=== PATIENT | female | born 1960 | race Caucasian/White ===

== ENCOUNTER 2022-11-13 10:46 | Emergency (ER) | payer MEDICARE, OTHER ==
[2022-11-13 11:32] VITALS: RESP 18; TEMP 98
--- NOTE | 2022-11-13 14:01 | ED ---
General Adult HPI - General Chief complaint: Nausea/Vomiting/Diarrhea Stated complaint: diverticulitis, knee pain Time Seen by Provider: 11/13/22 12:52 Source: patient, RN notes reviewed Mode of arrival: ambulatory Limitations: no limitations - History of Present Illness Initial comments: 62-year-old female with past medical history significant for COPD and Diverticulosis presents the emergency department complaing of Nausea and non- bloody diarrhea x 2 days. She reports that she has seen fatty deposits in her stool. She notes she has been nauseas but denies any episodes of vomiting. She denies abdominal pain, melena, hematochezia, hematemesis. She does report having C. Diff in the past. Denies recent travel or recent ABX use. She tried taking half of a norco with mild relief. She also reports R calf pain for which she was told she had a bakers cyst. She reports the pain is worse and radiates from the back of her right knee into her calf. She reports unilateral leg swelling. - Related Data Home Medications Medication Instructions Recorded Confirmed Albuterol Inhaler [Ventolin Hfa 2 puff INHALATION RT-QID PRN 11/13/22 11/13/22 Inhaler] DULoxetine HCL [Cymbalta] 60 mg PO DAILY 11/13/22 11/13/22 Famotidine 40 mg PO DAILY 11/13/22 11/13/22 LORazepam [Ativan] 1 mg PO DAILY PRN 11/13/22 11/13/22 Leflunomide [Arava] 20 mg PO DAILY 11/13/22 11/13/22 Levothyroxine Sodium [Synthroid] 100 mcg PO AC-[id number] 11/13/22 11/13/22 Metoprolol Tartrate [Lopressor] 50 mg PO DAILY 11/13/22 11/13/22 Pantoprazole [Protonix] 40 mg PO DAILY 11/13/22 11/13/22 Simvastatin [Zocor] 5 mg PO DAILY 11/13/22 11/13/22 busPIRone HCL [Buspar] 7.5 mg PO DAILY 11/13/22 11/13/22 Allergies Allergy/AdvReac Type Severity Reaction Status Date / Time Penicillins Allergy Anaphylaxis Verified 11/13/22 14:35 Sulfa (Sulfonamide Allergy Anaphylaxis Verified 11/13/22 14:35 Antibiotics) Review of Systems ROS Statement: Those systems with pertinent positive or pertinent negative responses have been documented in the HPI. ROS Other: All systems not noted in ROS Statement are negative. Past Medical History Past Medical History: COPD, Hypertension, Myocardial Infarction ([place]), Rheumatoid Arthritis (RA), Thyroid Disorder Additional Past Medical History / Comment(s): diverticulitis History of Any Multi-Drug Resistant Organisms: None Reported Past Surgical History: Cholecystectomy, Hernia Repair, Hysterectomy Additional Past Surgical History / Comment(s): heart cath Past Psychological History: No Psychological Hx Reported Smoking Status: Former smoker Past Alcohol Use History: Occasional Past Drug Use History: Marijuana General Exam Limitations: no limitations General appearance: alert, in no apparent distress Head exam: Present: atraumatic, normocephalic, normal inspection Eye exam: Present: normal appearance, PERRL, EOMI. Absent: scleral icterus, conjunctival injection, periorbital swelling ENT exam: Present: normal exam, mucous membranes moist Neck exam: Present: normal inspection. Absent: tenderness, meningismus, lymphadenopathy Respiratory exam: Present: normal lung sounds bilaterally. Absent: respiratory distress, wheezes, rales, rhonchi, stridor Cardiovascular Exam: Present: regular rate, normal rhythm, normal heart sounds. Absent: systolic murmur, diastolic murmur, rubs, gallop, clicks GI/Abdominal exam: Present: soft, normal bowel sounds. Absent: distended, tenderness, guarding, rebound, rigid Extremities exam: Present: normal inspection, full ROM, normal capillary refill, calf tenderness (R calf, + singh's. Without marked erythema. 1+ edema. ). A bsent: tenderness, pedal edema, joint swelling Back exam: Present: normal inspection Neurological exam: Present: alert, oriented X3, CN II-XII intact Psychiatric exam: Present: normal affect, normal mood Skin exam: Present: warm, dry, intact, normal color. Absent: rash Course Vital Signs 11/13/22 11/13/22 11:25 15:32 Temperature 98.0 F Pulse Rate 52 L 61 Respiratory 18 18 Rate Blood Pressure 145/88 120/61 O2 Sat by Pulse 92 L 84 L Oximetry Medical Decision Making - Medical Decision Making This is 62 year old female presenting to the emergency department for nausea, diarrhea, and right leg pain. Patient was seen and evaluated physical exam essentially unremarkable. Lab Work and imaging ordered and performed during the course in the ED. I interpreted the following: labwork essentially unremarkable, US doppler of R leg negative for DVT however, shows a dimas's cyst. Chest XR negative for evidence of pleural effusion. I discussed the results in detail with the patient and return precautions were discussed. Patient verbalized understanding and is agreeable with plan for discharge with follow up with primary care physician in 1-2 days. I discussed the case with DEANDRE Bianchi who agrees with plan for discharge. - Lab Data Result diagrams: 11/13/22 13:50 11/13/22 13:50 Lab Results 11/13/22 11/13/22 11/13/22 Range/Units 13:50 13:50 13:50 WBC 6.4 (3.8-10.6) k/uL RBC 5.12 (3.80-5.40) m/uL Hgb 15.0 (11.4-16.0) gm/dL Hct 46.0 (34.0-46.0) % MCV 89.9 (80.0-100.0) fL MCH 29.3 (25.0-35.0) pg MCHC 32.5 (31.0-37.0) g/dL RDW 13.3 (11.5-15.5) % Plt Count 216 (150-450) k/uL MPV 8.7 Neutrophils % 51 % Lymphocytes % 27 % Monocytes % 7 % Eosinophils % 12 % Basophils % 2 % Neutrophils # 3.2 (1.3-7.7) k/uL Lymphocytes # 1.7 (1.0-4.8) k/uL Monocytes # 0.4 (0-1.0) k/uL Eosinophils # 0.8 H (0-0.7) k/uL Basophils # 0.2 (0-0.2) k/uL Sodium 143 (137-145) mmol/L Potassium 4.4 (3.5-5.1) mmol/L Chloride 112 H (98-107) mmol/L Carbon Dioxide 26 (22-30) mmol/L Anion Gap 5 mmol/L BUN 15 (7-17) mg/dL Creatinine 0.76 (0.52-1.04) mg/dL Est GFR (CKD-EPI)AfAm >90 (>60 ml/min/1.73 sqM) Est GFR (CKD-EPI)NonAf 85 (>60 ml/min/1.73 sqM) Glucose 107 H (74-99) mg/dL Calcium 9.0 (8.4-10.2) mg/dL Total Bilirubin 0.5 (0.2-1.3) mg/dL AST 23 (14-36) U/L ALT 18 (4-34) U/L Alkaline Phosphatase 74 (38-126) U/L Troponin I <0.012 (0.000-0.034) ng/mL Total Protein 6.8 (6.3-8.2) g/dL Albumin 4.0 (3.5-5.0) g/dL Lipase 41 (23-300) U/L Influenza Type A (PCR) (Not Detectd) Influenza Type B (PCR) (Not Detectd) RSV (PCR) (Not Detectd) SARS-CoV-2 (PCR) (Not Detectd) 11/13/22 Range/Units 13:50 WBC (3.8-10.6) k/uL RBC (3.80-5.40) m/uL Hgb (11.4-16.0) gm/dL Hct (34.0-46.0) % MCV (80.0-100.0) fL MCH (25.0-35.0) pg MCHC (31.0-37.0) g/dL RDW (11.5-15.5) % Plt Count (150-450) k/uL MPV Neutrophils % % Lymphocytes % % Monocytes % % Eosinophils % % Basophils % % Neutrophils # (1.3-7.7) k/uL Lymphocytes # (1.0-4.8) k/uL Monocytes # (0-1.0) k/uL Eosinophils # (0-0.7) k/uL Basophils # (0-0.2) k/uL Sodium (137-145) mmol/L Potassium (3.5-5.1) mmol/L Chloride (98-107) mmol/L Carbon Dioxide (22-30) mmol/L Anion Gap mmol/L BUN (7-17) mg/dL Creatinine (0.52-1.04) mg/dL Est GFR (CKD-EPI)AfAm (>60 ml/min/1.73 sqM) Est GFR (CKD-EPI)NonAf (>60 ml/min/1.73 sqM) Glucose (74-99) mg/dL Calcium (8.4-10.2) mg/dL Total Bilirubin (0.2-1.3) mg/dL AST (14-36) U/L ALT (4-34) U/L Alkaline Phosphatase (38-126) U/L Troponin I (0.000-0.034) ng/mL Total Protein (6.3-8.2) g/dL Albumin (3.5-5.0) g/dL Lipase (23-300) U/L Influenza Type A (PCR) Not Detected (Not Detectd) Influenza Type B (PCR) Not Detected (Not Detectd) RSV (PCR) Not Detected (Not Detectd) SARS-CoV-2 (PCR) Not Detected (Not Detectd) Disposition Clinical Impression: Dimas's cyst of knee, Nausea Disposition: HOME SELF-CARE Condition: Stable Instructions (If sedation given, give patient instructions): Acute Nausea and Vomiting (ED) Additional Instructions: Please return to the nearest emergency department if worsening symptoms of fever, shortness of breath, diarrhea. Is patient prescribed a controlled substance at d/c from ED?: No Referrals: Rebel Castro MD [Primary Care Provider] - 1-2 days Time of Disposition: 16:08
[2022-11-13 14:10] LABS: Basophils # (A) 0.2 k/uL (0-0.2); Basophils % (A) 2 %; Eosinophils # (A) 0.8 k/uL (0-0.7); Eosinophils % (A) 12 %; Lymphocytes # (A) 1.7 k/uL (1.0-4.8); Lymphocytes % (A) 27 %; MCH 29.3 pg (25.0-35.0); MCHC 32.5 g/dL (31.0-37.0); MCV 89.9 fL (80.0-100.0); Mean Platelet Volume 8.7; Monocytes # (A) 0.4 k/uL (0-1.0); Monocytes % (A) 7 %; Neutrophils # (A) 3.2 k/uL (1.3-7.7); Neutrophils % (A) 51 %; Platelet Count 216 k/uL (150-450); RBC 5.12 m/uL (3.80-5.40); RDW 13.3 % (11.5-15.5); WBC 6.4 k/uL (3.8-10.6)
[2022-11-13 14:22] LABS: ALT 18 U/L (4-34); AST 23 U/L (14-36); African American GFR (CKD) >90 (>60 ml/min/1.73 sqM); Alkaline Phosphatase 74 U/L (38-126); Anion Gap 5 mmol/L; Blood Urea Nitrogen 15 mg/dL (7-17); Carbon Dioxide 26 mmol/L (22-30); Chloride 112 mmol/L (98-107); Glucose 107 mg/dL (74-99); Lipase 41 U/L (23-300); Non-African American GFR(CKD) 85 (>60 ml/min/1.73 sqM); Potassium 4.4 mmol/L (3.5-5.1); Sodium 143 mmol/L (137-145); Total Bilirubin 0.5 mg/dL (0.2-1.3); Total Protein 6.8 g/dL (6.3-8.2)
--- NOTE | 2022-11-13 14:27 | CT ---
EXAMINATION TYPE: CT abdomen pelvis wo con DATE OF EXAM: 11/13/2022 COMPARISON: None HISTORY: 62-year-old female with diverticulitis, abdominal pain CT DLP: 1093.4 mGycm. Automated exposure control for dose reduction was used. TECHNIQUE: Contiguous axial scanning of the abdomen and pelvis without IV contrast. Coronal and sagit piter reconstructions performed. FINDINGS: Heart normal size without pericardial effusion. Lung bases through without pleural effusion. Noncontrast appearance of the liver, adrenal glands, right kidney, spleen, and pancreas within normal limits. Tiny 2 mm nonobstructive left midpole renal calculus. Mesh material along the anterior right upper quadrant. No dilated small bowel, free fluid, or free air. No mesenteric or retroperitoneal lymph adenopathy. Scattered mild atherosclerotic calcifications distal abdominal aorta and common iliac arteries. Normal appendix. Mild overall stool burden. Scattered colonic diverticulosis throughout. No pericolonic inflammatory c hange. Bladder is collapsed limiting its evaluation. Uterus surgically absent. Both ovaries are visualized. No abnormal fluid collection in the pelvis or pelvic lymphadenopathy. Bones: Hypertrophic facet arthropathy lower lumbar spine. Moderate to advanced degenerative disc dise ase L5-S1. IMPRESSION: 1. Generalized colonic diverticulosis without convincing evidence for acute diverticulitis. 2. Tiny 2 mm nonobstructive left renal calculus. 3. Previous mesh repair along the anterior right upper quadrant.
--- NOTE | 2022-11-13 14:37 | XR ---
EXAMINATION TYPE: XR chest 2V DATE OF EXAM: 11/13/2022 COMPARISON: None HISTORY: 62 year-old female nausea and cough TECHNIQUE: PA and lateral views FINDINGS: ACDF hardware. Moderate to severe degenerative change bilateral AC joints. Heart normal size. Aorta a nd pulmonary vasculature within normal limits. Mild streaky perihilar density and mild peribronchial cuffing. No consolidation or pleural effusion. IMPRESSION: Correlate for possible bronchitis or asthma. No focal infiltrate seen.
--- NOTE | 2022-11-13 14:39 | XR ---
EXAMINATION TYPE: XR knee complete RT DATE OF EXAM: 11/13/2022 2:14 PM INDICATION: Patient age:Female; 62 years old; Reason for study: cough. COMPARISON: None. TECHNIQUE: The Right knee(s) was examined in Frontal, lateral and oblique projections. FINDINGS: No evidence of any acute osseous pathology, joint space narrowing, soft tissue swelling. Small joint effusion present. Calcific density posterior to the knee could represent popliteal fossa Dimas's cyst with debris. There is calcifications mild enthesophyte formation of the quadriceps tendo n on the patella. Mild osteophyte formation of the patella. IMPRESSION: 1. No acute osseous pathology. 2. Mild tricompartmental osteoarthritic changes. 3. Right popliteal fossa curvilinear density could represent up to located popliteal fossa cyst. Atte ntion on ultrasound imaging scheduled for deep vein tendinosis.
--- NOTE | 2022-11-13 15:50 | US ---
EXAMINATION TYPE: US venous doppler duplex LE RT DATE OF EXAM: 11/13/2022 3:26 PM COMPARISON: NONE CLINICAL HISTORY: 62-year-old female with pain x 3 weeks in right leg. No hx of DVT per patient. SIDE PERFORMED: Right TECHNIQUE: The lower extremity deep venous system is examined utilizing real time linear array sonog marsha with graded compression, doppler sonography and color-flow sonography. FINDINGS: VESSELS IMAGED: Common Femoral Vein Deep Femoral Vein Greater Saphenous Vein * Femoral Vein Popliteal Vein Small Saphenous Vein * Proximal Calf Veins (* superficial vessels) Piping Drafter notes: Right Leg: No evidence of DVT. Complex area seen medial right popliteal area: 5.7 x 2.6 x 1.9 cm. Complex area seen medial mid calf at patient's area of pain: 3.9 x 1.9 x 0.7 cm. - ? possible complex fluid collection. IMPRESSION: 1. No evidence for DVT within the right lower extremity imaged from the groin to the upper calf. 2. A moderate-sized mildly complex Dimas's cyst measuring 5.7 x 2.6 cm. 3. Medial mid calf at the patient's site of pain shows a second elongated area of fluid measuring 3.9 x 1.9 cm. This is located along the superficial muscular fascia and could represent fluid accumulati ng after a shearing soft tissue injury or superficial muscular tear. Recommend ultrasound follow-up i n 3-4 weeks to reassess as well as consideration to orthopedic follow-up.
[2022-11-13] MEDS ORDERED: ACET/COD 300 MG/30 MG STARTER PACK 6 TAB BTL PO STA (16:11)
[2022-11-13 16:31] VITALS: BP 120/61; PULSE 61
== END 2022-11-13 16:32 | disposition home or self-care (01) ==
LOC: EC 10:46
DX: M71.21 Synovial cyst of popliteal space [Baker], right knee (principal); N20.0 Calculus of kidney; K57.30 Diverticulosis of large intestine without perforation or abscess without bleeding; J44.9 Chronic obstructive pulmonary disease, unspecified; I10 Essential (primary) hypertension; I25.2 Old myocardial infarction; E07.9 Disorder of thyroid, unspecified; Z87.891 Personal history of nicotine dependence; F12.90 Cannabis use, unspecified, uncomplicated; Z79.890 Hormone replacement therapy; Z79.899 Other long term (current) drug therapy; Z88.0 Allergy status to penicillin; Z88.2 Allergy status to sulfonamides; Z20.822 Contact with and (suspected) exposure to COVID-19
CPT/HCPCS: 36415; 71046; 74176; 80053; 83690; 84484; 85025; 87636; 99284